=== PATIENT | male | born 1965 | race American Indian/Alaskan Native ===

== ENCOUNTER 2021-01-03 20:38 | Emergency (ER) | payer SELFPAY ==
[2021-01-03] MEDS ORDERED: KETOROLAC 30 MG/1 ML INJ IV ONE (21:07)
[2021-01-03 21:57] LABS: Basophils # (Auto) 0.1 K/mm3 (0.0-0.1); Basophils % (Auto) 0.6 % (0.0-1.8); Eosinophils # (Auto) 0.1 K/mm3 (0.0-0.4); Eosinophils % (Auto) 1.5 % (0.0-4.3); Hematocrit 43.8 % (35.5-45.6); Hemoglobin 14.8 gm/dl (11.8-15.2); Lymphocytes # (Auto) 3.1 K/mm3 (1.2-5.4); Lymphocytes % (Auto) 36.1 % (13.4-35.0); Mean Corpuscular HGB Conc 34 % (32-34); Mean Corpuscular Volume 92 fl (84-94); Monocytes # (Auto) 0.8 K/mm3 (0.0-0.8); Monocytes % (Auto) 9.6 % (0.0-7.3); Platelet Count 238 K/mm3 (140-440); Red Blood Count 4.74 M/mm3 (3.65-5.03); Red Cell Distribution Width 13.5 % (13.2-15.2)
[2021-01-03 22:16] LABS: Alanine Aminotransferase 15 units/L (7-56); Albumin 4.1 g/dL (3.9-5); BUN/Creatinine Ratio 13; Blood Urea Nitrogen 10 mg/dL (9-20); Hemolysis Index 22
--- NOTE | 2021-01-03 23:17 | Cat Scan Report ---
CT ABDOMEN AND PELVIS WITH IV CONTRAST INDICATION: Swollen painful mass on lower back -r/o abscess. COMPARISON: None available. TECHNIQUE: All CT scans at this facility use dose modulation, automated exposure control, iterative reconstructi on or weight based dosing, when appropriate, to reduce radiation dose to as low as reasonably achieva ble. FINDINGS: Lung Bases: Mild groundglass opacities in the bases may be artifact related to diaphragm motion. Skeletal System: No acute abnormality. ABDOMEN: Liver: No acute abnormality. Punctate hypodensity in the anterior inferior right lobe is too small ch aracterize but most likely a cyst. Gallbladder: No significant abnormality. Bile Ducts: No significant abnormality. Adrenals: No significant abnormality. Right Kidney: No acute abnormality. There is a punctate cyst in the anterior cortex. Left Kidney: No significant abnormality. Pancreas: No significant abnormality. Spleen: No significant abnormality. Upper GI tract: No significant abnormality. Lymph Nodes: No significant adenopathy. Aorta: No significant abnormality. Additional Findings: Within the right flank subcutaneous fat there is diffuse subcutaneous edema with a superficial 2 cm fluid collection (axial image 284), at the level of the thoracolumbar junction. U nderlying musculature is unremarkable. PELVIS: Colon: No acute abnormality. There is mild constipation. Urinary Bladder and Distal Ureters: No significant abnormality. Appendix: No significant abnormality. Lymph Nodes: No significant adenopathy. Additional Findings: Prostate is enlarged. There are small fat-containing bilateral groin hernias. IMPRESSION: 1. 2 cm superficial subcutaneous abscess right flank with surrounding cellulitis. No underlying myos itis. 2. Incidental findings, as above. Signer Name: Santosh Orozco MD Signed: 01/03/2021 11:13 PM Workstation Name: [id number]
[2021-01-03] MEDS ORDERED: LIDOCAINE (1%) 10 MG/1 ML VIAL 20 ML MDV INFILTRATI ONE (23:39)
[2021-01-03] MEDS ORDERED: ONDANSETRON 4 MG/2 ML INJ IV ONE (23:39)
[2021-01-03] MEDS ORDERED: MORPHINE 4 MG/1 ML INJ IV ONE (23:40)
[2021-01-04] MEDS ORDERED: MORPHINE 2 MG/1 ML INJ IV ONE (00:16)
[2021-01-04] MEDS: MORPHINE 2 MG/1 ML INJ IV ONE ×2 (00:23→00:24)
--- NOTE | 2021-01-04 01:32 | Emergency Department Report ---
ED General Adult HPI - General Chief complaint: Back Pain/Injury Stated complaint: KNOT ON BACK Source: patient Mode of arrival: Ambulatory Limitations: No Limitations - History of Present Illness Initial comments: Patient is a 55-year-old -[place] male with no past medical history presents to the ED with complaint of acute onset persistent painful swollen mild erythematous maculopapular rash on lateral right lower back for the last 1 week. Patient states that he has not been able to sleep because of worsening pain. Patient also states that the pain is worse with movement or palpation. Patient denies fever, chills, nausea, vomiting, dizziness, syncope, numbness and tingling or weakness of lower extremities bilaterally, headache, traumatic injury, fall, change in vision,. MD Complaint: Swollen, painful mild erythematous maculopapular rash on right lower back -: Sudden, week(s) (1) Location: back (Low back) Radiation: non-radiation Severity scale (0 -10): 8 Quality: aching, sharp Consistency: constant Improves with: none Worsens with: movement Associated Symptoms: denies other symptoms, rash (Swollen, painful mild erythematous maculopapular rash on lower back). denies: confusion, chest pain, cough, diaphoresis, fever/chills, headaches, loss of appetite, malaise, nausea/vomiting, seizure, shortness of breath, syncope, weakness Treatments Prior to Arrival: none - Related Data Previous Rx's Medication Instructions Recorded Last Taken Type Clindamycin [Clindamycin CAP] 300 mg PO Q8HR #60 capsule 01/04/21 Unknown Rx Ibuprofen [Motrin] 600 mg PO Q8H PRN #30 tablet 01/04/21 Unknown Rx Sulfamethoxazole/Trimethoprim 1 each PO Q12H #20 tablet 01/04/21 Unknown Rx [Bactrim DS TAB] Allergies Allergy/AdvReac Type Severity Reaction Status Date / Time No Known Allergies Allergy Verified 01/03/21 20:48 ED Review of Systems ROS: Stated complaint: KNOT ON BACK Other details as noted in HPI Constitutional: denies: chills, fever Eyes: denies: eye pain, eye discharge, vision change ENT: denies: ear pain, throat pain Respiratory: denies: cough, shortness of breath, wheezing Cardiovascular: denies: chest pain, palpitations Endocrine: no symptoms reported Gastrointestinal: denies: abdominal pain, nausea, vomiting, diarrhea Genitourinary: denies: urgency, dysuria Musculoskeletal: back pain (Right lateral low back pain due to erythematous maculopapular fluctuant rash), myalgia. denies: joint swelling, arthralgia Skin: rash (Swollen, painful, erythematous maculopapular rash on right lateral lower back), change in color. denies: lesions Neurological: denies: headache, weakness, paresthesias Psychiatric: denies: anxiety, depression Hematological/Lymphatic: denies: easy bleeding, easy bruising ED Past Medical Hx - Past Medical History Previous Medical History?: No - Surgical History Past Surgical History?: No - Social History Smoking Status: Current Every Day Smoker Substance Use Type: None - Medications Home Medications: Home Medications Medication Instructions Recorded Confirmed Last Taken Type Clindamycin [Clindamycin CAP] 300 mg PO Q8HR #60 capsule 01/04/21 Unknown Rx Ibuprofen [Motrin] 600 mg PO Q8H PRN #30 tablet 01/04/21 Unknown Rx Sulfamethoxazole/Trimethoprim 1 each PO Q12H #20 tablet 01/04/21 Unknown Rx [Bactrim DS TAB] ED Physical Exam - General Limitations: No Limitations General appearance: alert, in no apparent distress - Head Head exam: Present: atraumatic, normocephalic, normal inspection - Eye Eye exam: Present: normal appearance, PERRL, EOMI Pupils: Present: normal accommodation - ENT ENT exam: Present: normal exam, normal orophraynx, mucous membranes moist, TM's normal bilaterally, normal external ear exam - Neck Neck exam: Present: normal inspection, full ROM - Respiratory Respiratory exam: Present: normal lung sounds bilaterally. Absent: respiratory distress, wheezes, rales, rhonchi, chest wall tenderness, accessory muscle use, decreased breath sounds - Cardiovascular Cardiovascular Exam: Present: regular rate, normal rhythm, normal heart sounds. Absent: systolic murmur, diastolic murmur, rubs, gallop - GI/Abdominal GI/Abdominal exam: Present: soft, normal bowel sounds. Absent: tenderness, guarding, rebound, hyperactive bowel sounds, hypoactive bowel sounds - Extremities Exam Extremities exam: Present: normal inspection, full ROM, normal capillary refill - Back Exam Back exam: Present: normal inspection, full ROM, tenderness (Palpable right lateral lumbosacral swollen erythematous maculopapular fluctuant rash with tenderness), paraspinal tenderness, rash noted (Swollen, tender, fluctuant erythematous maculopapular rash). Absent: CVA tenderness (L), muscle spasm - Neurological Exam Neurological exam: Present: alert, oriented X3, CN II-XII intact, normal gait, reflexes normal - Psychiatric Psychiatric exam: Present: normal affect, normal mood - Skin Skin exam: Present: warm, dry, intact, normal color. Absent: rash ED Course Vital Signs 01/03/21 01/03/21 20:47 21:41 Pulse Rate 97 H Respiratory 16 18 Rate Blood Pressure 120/80 O2 Sat by Pulse 100 Oximetry - I & D Right Lateral Back Type of Procedure: Simple Site: Lateral right lumbar sacral area Blade Size: 11 I & D Procedure: betadine prep, sterile drapes applied, sterile dressing applied Progress: The area was cleaned with normal saline and Betadine, 1% lidocaine solution was infiltrated around the area. A surgical #11 scalpel blade was used to incise the area and copious thick purulent discharge drained from the wound. The wound was then debrided extensively with normal saline and an iodoform quarter inch gauze was used as packing material. The wound was then dressed appropriately and the patient will discharge home on pain medications and oral antibiotics. Patient is advised return to the ED in 2 days for wound recheck and packing removal, otherwise follow-up with his primary care physician in 7 to 10 days for reevaluation. ED Medical Decision Making - Lab Data Result diagrams: 01/03/21 21:31 01/03/21 21:31 - Radiology Data Radiology results: report reviewed, image reviewed [address] [address] Cat Scan Report Signed Patient: JOSSE CABEZAS MR#: [id number] : 1965 Acct:[id number] Age/Sex: 55 / M ADM Date: 01/03/21 Loc: ED Attending Dr: Ordering Physician: BERNARD TORRES Date of Service: 01/03/21 Procedure(s): CT abdomen pelvis w con Accession Number(s): [id number] cc: BERNARD TORRES CT ABDOMEN AND PELVIS WITH IV CONTRAST INDICATION: Swollen painful mass on lower back -r/o abscess. COMPARISON: None available. TECHNIQUE: All CT scans at this facility use dose modulation, automated exposure control, iterative reconstruction or weight based dosing, when appropriate, to reduce radiation dose to as low as reasonably achievable. FINDINGS: Lung Bases: Mild groundglass opacities in the bases may be artifact related to diaphragm motion. Skeletal System: No acute abnormality. ABDOMEN: Liver: No acute abnormality. Punctate hypodensity in the anterior inferior right lobe is too small characterize but most likely a cyst. Gallbladder: No significant abnormality. Bile Ducts: No significant abnormality. Adrenals: No significant abnormality. Right Kidney: No acute abnormality. There is a punctate cyst in the anterior cortex. Left Kidney: No significant abnormality. Pancreas: No significant abnormality. Spleen: No significant abnormality. Upper GI tract: No significant abnormality. Lymph Nodes: No significant adenopathy. Aorta: No significant abnormality. Additional Findings: Within the right flank subcutaneous fat there is diffuse subcutaneous edema with a superficial 2 cm fluid collection (axial image 284), at the level of the thoracolumbar junction. Underlying musculature is unremarkable. PELVIS: Colon: No acute abnormality. There is mild constipation. Urinary Bladder and Distal Ureters: No significant abnormality. Appendix: No significant abnormality. Lymph Nodes: No significant adenopathy. Additional Findings: Prostate is enlarged. There are small fat-containing bilateral groin hernias. IMPRESSION: 1. 2 cm superficial subcutaneous abscess right flank with surrounding cellulitis. No underlying myositis. 2. Incidental findings, as above. Signer Name: Santosh Orozco MD Signed: 01/03/2021 11:13 PM Workstation Name: [id number] Transcribed By: SW Dictated By: Santosh Orozco MD Electronically Authenticated By: Santosh Orozco MD Signed Date/Time: 01/03/212312 DD/ 08 TD/TT: Print Cancel - Medical Decision Making This is a 55-year-old -[place] male with no past medical history presents to the ED with complaint of acute onset persistent painful swollen mild erythematous maculopapular rash on lateral right lower back for the last 1 week. Patient states that he has not been able to sleep because of worsening pain. Patient also states that the pain is worse with movement or palpation. In the ED, patient is alert and oriented x3 and is not in any distress. Patient was treated for pain in the ED and also received clindamycin 900 mg IV x1. The area was cleaned with normal saline and Betadine, 1% lidocaine solution was infiltrated around the area. A surgical #11 scalpel blade was used to incise the area and copious thick purulent discharge drained from the wound. The wound was then debrided extensively with normal saline and an iodoform quarter inch gauze was used as packing material. The wound was then dressed appropriately and the patient will discharge home on pain medications and oral antibiotics. Patient is advised return to the ED in 2 days for wound recheck and packing removal, otherwise follow-up with his primary care physician in 7 to 10 days for reevaluation. - Differential Diagnosis Cellulitis; abscess; folliculitis; lipoma Critical care attestation.: If time is entered above; I have spent that time in minutes in the direct care of this critically ill patient, excluding procedure time. ED Disposition Clinical Impression: Cellulitis of upper back excluding scapular region, Cutaneous abscess of back excluding buttocks Disposition: 01 HOME / SELF CARE / HOMELESS Is pt being admited?: No Does the pt Need Aspirin: No Condition: Stable Instructions: Cellulitis, Adult, [id number], Skin Abscess, [id number] Additional Instructions: All lab test results were reviewed and are all nonactionable. Therefore take medication with food, drink plenty fluids and follow-up with your primary care physician in 7 to 10 days for reevaluation. Return to the ED immediately if symptoms get worse. Otherwise return to the ED in 2 days for wound recheck and packing removal. Prescriptions: Sulfamethoxazole/Trimethoprim [Bactrim DS TAB] 1 each PO Q12H #20 tablet Clindamycin [Clindamycin CAP] 300 mg PO Q8HR #60 capsule Ibuprofen [Motrin] 600 mg PO Q8H PRN #30 tablet PRN Reason: Pain Referrals: [facility] [Provider Group] - 3-5 Days Time of Disposition: 01:34 Print Language: MALAGASY
[2021-01-04 02:52] VITALS: BP 100/68
== END 2021-01-04 02:52 | disposition home or self-care (01) ==
LOC: ED 20:38
DX: L02.212 Cutaneous abscess of back [any part, except buttock and flank] (principal); L03.312 Cellulitis of back [any part except buttock and flank]; F17.200 Nicotine dependence, unspecified, uncomplicated; Z79.899 Other long term (current) drug therapy
CPT/HCPCS: 10060; 36415; 74177; 80053; 85025; 87040; 96365; 96375; 99284; J1885; J2270; J2405; Q9967

== ENCOUNTER 2021-01-06 12:55 | Emergency (ER) | payer SELFPAY ==
[2021-01-06 13:21] VITALS: BP 116/74
--- NOTE | 2021-01-06 13:58 | Emergency Department Report ---
- General Chief complaint: Recheck/Abnormal Lab/Rx Stated complaint: REMOVAL OF PACKING Time Seen by Provider: 01/06/21 13:23 Source: patient Mode of arrival: Ambulatory Limitations: No Limitations - History of Present Illness Initial comments: Patient is a 55-year-old male who presents emergency room with complaints of needing packing removal from his right lower back. Patient was evaluated in the emergency department on 01/03/2021 and had an I&D performed at that time. He had a CT scan which showed a superficial abscess and surrounding cellulitis. Patient denies any increasing pain, increasing drainage, fever, vomiting. He is currently taking Bactrim and clindamycin. He denies any medication allergies. - Related Data Previous Rx's Medication Instructions Recorded Last Taken Type Clindamycin [Clindamycin CAP] 300 mg PO Q8HR #60 capsule 01/04/21 Unknown Rx Ibuprofen [Motrin] 600 mg PO Q8H PRN #30 tablet 01/04/21 Unknown Rx Sulfamethoxazole/Trimethoprim 1 each PO Q12H #20 tablet 01/04/21 Unknown Rx [Bactrim DS TAB] Allergies Allergy/AdvReac Type Severity Reaction Status Date / Time No Known Allergies Allergy Verified 01/06/21 13:21 Abscess Boil HPI - HPI Chief Complaint: Recheck/Abnormal Lab/Rx Stated Complaint: REMOVAL OF PACKING Time Seen by Provider: 01/06/21 13:23 Home Medications: Previous Rx's Medication Instructions Recorded Last Taken Type Clindamycin [Clindamycin CAP] 300 mg PO Q8HR #60 capsule 01/04/21 Unknown Rx Ibuprofen [Motrin] 600 mg PO Q8H PRN #30 tablet 01/04/21 Unknown Rx Sulfamethoxazole/Trimethoprim 1 each PO Q12H #20 tablet 01/04/21 Unknown Rx [Bactrim DS TAB] Allergies/Adverse Reactions: Allergies Allergy/AdvReac Type Severity Reaction Status Date / Time No Known Allergies Allergy Verified 01/06/21 13:21 ED Review of Systems ROS: Stated complaint: REMOVAL OF PACKING Other details as noted in HPI Comment: All other systems reviewed and negative ED Past Medical Hx - Social History Smoking Status: Current Every Day Smoker Substance Use Type: None - Medications Home Medications: Home Medications Medication Instructions Recorded Confirmed Last Taken Type Clindamycin [Clindamycin CAP] 300 mg PO Q8HR #60 capsule 10/31/21 Unknown Rx Ibuprofen [Motrin] 600 mg PO Q8H PRN #30 tablet 01/04/21 Unknown Rx Sulfamethoxazole/Trimethoprim 1 each PO Q12H #20 tablet 01/04/21 Unknown Rx [Bactrim DS TAB] ED Physical Exam - General Limitations: No Limitations General appearance: alert, in no apparent distress - Head Head exam: Present: atraumatic, normocephalic - Eye Eye exam: Present: normal appearance - ENT ENT exam: Present: mucous membranes moist - Neurological Exam Neurological exam: Present: alert, oriented X3 - Psychiatric Psychiatric exam: Present: normal affect, normal mood - Skin Skin exam: Present: warm, dry, other (there is packing present to the right lower back with a 1 cm incision, there is surrounding induration of the skin, no crepitus, no fluctuance, no drainage, no necrosis) ED Course Vital Signs 01/06/21 13:21 Temperature 98.6 F Pulse Rate 76 Respiratory 20 Rate Blood Pressure 116/74 [Left] O2 Sat by Pulse 99 Oximetry ED Medical Decision Making - Medical Decision Making Patient is a 55-year-old male who presents emergency room with complaints of needing packing removal from his right lower back. Patient was evaluated in the emergency department on 01/03/2021 and had an I&D performed at that time. He had a CT scan which showed a superficial abscess and surrounding cellulitis. Patient denies any increasing pain, increasing drainage, fever, vomiting. He is currently taking Bactrim and clindamycin. He denies any medication allergies. Vitals are normal. On exam:there is packing present to the right lower back with a 1 cm incision, there is surrounding induration of the skin, no crepitus, no fluctuance, no drainage, no necrosis. Packing removed without any complication, no continued abscess, no drainage. There is still cellulitis present. Advised patient to take medication as prescribed to completion. Discussed with patient to have area reexamined by primary care and general surgery. Discussed very strict return precautions with patient. Advised patient Please take your antibiotics that you were prescribed to completion. Follow-up with your primary care doctor. Follow-up with a general surgeon. Return to emergency room immediately for any new or worsening symptoms. Critical care attestation.: If time is entered above; I have spent that time in minutes in the direct care of this critically ill patient, excluding procedure time. ED Disposition Clinical Impression: Abscess packing removal Cellulitis Qualifiers: Site of cellulitis: trunk Site of cellulitis of trunk: back Qualified Code(s): L03.312 - Cellulitis of back [any part except buttock] Disposition: HOME / SELF CARE / HOMELESS Is pt being admited?: No Does the pt Need Aspirin: No Condition: Stable Instructions: Cellulitis, Adult, Incision Care, Adult, [id number] Additional Instructions: Please take your antibiotics that you were prescribed to completion. Follow-up with your primary care doctor. Follow-up with a general surgeon. Return to emergency room immediately for any new or worsening symptoms. Referrals: your, primary care doctor [Other] - 2-3 Days PINKY SCHILLING MD [Staff Physician] - 2-3 Days Time of Disposition: 14:00 Print Language: CZECH
== END 2021-01-06 14:25 | disposition home or self-care (01) ==
LOC: ED 12:55
DX: L03.312 Cellulitis of back [any part except buttock and flank] (principal); F17.200 Nicotine dependence, unspecified, uncomplicated
CPT/HCPCS: 99282